=== PATIENT | female | born 1995 | race Hispanic/Latino ===

== ENCOUNTER → 2020-09-09 09:32 | Outpatient (CLI) | payer OTHER, SELFPAY ==
[2020-09-09] MEDS: COVID-19 VACC, Ad26(JANSSEN)/PF 0.5 ML IM (09:41)
== END ==
PROVIDERS: Visit Provider Internal Medicine
DX: Z23 Encounter for immunization (principal)
CPT/HCPCS: 0031A; 91303

== ENCOUNTER 2020-11-21 22:38 | Emergency (ER) | payer OTHER, SELFPAY ==
[2020-11-21 22:50] VITALS: BP 113/74; PULSE 75; RESP 16; TEMP 36.4; O2SAT 98; BMI 28.3
--- NOTE | 2020-11-21 23:00 | ED.HA ---
HPI - Headache General Chief Complaint: Headache Stated Complaint: REALLY BAD HEADACHE NOT GOING AWAY Time Seen by Provider: 11/21/20 22:56 Mode of arrival: Ambulatory Limitations: no limitations History of Present Illness HPI Narrative: 24-year-old female nonsmoker without contributory medical history presents with her significant other and a chief complaint of a frontal headache off and on for the past month. She states that it is squeezing in achy and in the front of her head. It comes on gradually over the course of the day and seems to be worsened by bright lights and loud noises. She denies any fever or chills. She has had no recent trauma or injury. She has no neck pain and denies neurologic symptoms such as blurred vision, trouble speech or numbness, tingling or weakness. She has tried taking some Tylenol and Motrin at home but does not seem to help much. Related Data Home Medications Medication Instructions Recorded Confirmed levonorgestrel 20 mcg/24 hours (6 INTRAUTERINE each 10/08/17 11/04/20 yrs) 52 mg intrauterine device (Mirena) Allergies Allergy/AdvReac Type Severity Reaction Status Date / Time No Known Drug Allergies Allergy Verified 11/04/20 09:22 Review of Systems Review of Systems Narrative: GENERAL: Denies chills, fatigue, malaise, fever, sweats. HEENT: Denies sinus pain, ear pain, sore throat, difficulty swallowing, dizziness. RESPIRATORY: Denies dyspnea, cough, wheezing, hemoptysis, sputum. CARDIOVASCULAR: Denies chest pain, palpitations, orthopnea, edema, GASTROINTESTINAL: Denies nausea, vomiting, abdominal pain, diarrhea, constipation, melena. : Denies dysuria, frequency, incontinence, hematuria, urinary retention. MUSCULOSKELETAL: denies weakness, joint pain, or bony pain SKIN: Denies rash, skin lesions, or other NEUROLOGIC: See HPI. PSYCHIATRIC: No concerning psychosocial issues. 12 point review of systems is negative except for those stated above Patient History Medical History Tuberculosis (~1993) Family History Mother Age: 64 Hypertension High cholesterol Father Diabetes mellitus Grandmother No problems noted. Social History marital status: number of children: 2 household members: spouse and children lives independently: Yes caregiver/support person: No housing: apartment pets and animals: No education level: high school occupational status: employed special kely needs: No travel history: over 6 months ago leisure activities: exercise seatbelt use: always helmet use: Yes water heater temp set < 120 deg: Yes working smoke detector in home: Yes fire extinguisher in home: No carbon monox detector in home: Yes firearms in home: No do you feel safe at home: Yes Smoking Status: Never smoker second hand exposure: No alcohol intake: never substance use type: does not use during the past year weight has: increased > 10 lbs well-balanced diet: rarely or never daily servings fruits/ve-4 caffeine: Yes eating out: 1-3 times/week Type(s) of exercise: walking frequency: 1-2 times per week duration: < 15 minutes/day Smoking Status: Never smoker alcohol intake frequency: 0-2 drinks per day Substance Use Type: does not use Exam Narrative Exam Narrative: GENERAL: [24] year old patient appears stated age. Well-developed patient, in mild distress. Obviously uncomfortable, rubbing her forehead and sitting in a dark room HEAD: Atraumatic. Normocephalic. EYES: Pupils equal round and reactive. Extraocular motions intact. No scleral icterus. No injection or drainage. ENT: Nose without bleeding, purulent drainage. Throat without erythema, tonsillar hypertrophy or exudate. Airway patent. NECK: Trachea midline. Non tender CARDIOVASCULAR: Regular rate and rhythm without murmurs, gallops, or rubs. RESPIRATORY: Clear to auscultation. Breath sounds equal bilaterally. No wheezes, rales, or rhonchi. GASTROINTESTINAL: Abdomen soft, non-tender, nondistended. EXTREMITIES: No edema or joint tenderness. BACK: Nontender without deformity or crepitance. No flank tenderness. NEURO: AOx3. SKIN: No rash or erythema of visible areas Initial Vital Signs Initial Vital Signs: Vital Signs Temperature 97.6 F 11/21/20 22:50 Pulse Rate 75 11/21/20 22:50 Respiratory Rate 16 11/21/20 22:50 Blood Pressure 113/74 11/21/20 22:50 Pulse Oximetry 98 11/21/20 22:50 Course Orders Ordered: Discontinued Medications Amoxicillin/Clavulanate Potassium (Amoxicillin/Clav 875/125 Mg) 1 tab PO NOW ONE Stop: 11/22/20 06:13 Sodium Chloride (Normal Saline 0.9%) 1,000 mls @ 1,000 mls/hr IV BOLUS ONE Stop: 11/22/20 00:00 Last Infusion: 11/22/20 00:09 Dose: 0 mls/hr Documented by: Admin: 11/21/20 23:11 Dose: 1,000 mls/hr Documented by: BERNIE Ketorolac Tromethamine (Ketorolac 30 Mg/Ml Vial) 15 mg IV NOW ONE Stop: 11/21/20 23:21 Last Admin: 11/21/20 23:27 Dose: 15 mg Documented by: CHANTEL Metoclopramide HCl (Metoclopramide 10 Mg/2 Ml Inj) 5 mg IV NOW ONE Stop: 11/21/20 23:21 Last Admin: 11/21/20 23:27 Dose: 5 mg Documented by: CHANTEL Vital Signs Vital signs: Vital Signs - 8 hr 11/21/20 22:50 11/21/20 23:08 11/21/20 23:31 Temperature 97.6 F Pulse Rate 75 60 69 Respiratory Rate 16 Blood Pressure 113/74 103/63 Pulse Oximetry 98 98 99 11/22/20 00:10 Temperature Pulse Rate 79 Respiratory Rate 16 Blood Pressure 98/56 L Pulse Oximetry 99 MDM - Headache Lab Data Labs: Point of Care Testing Test Results Negative Urine Dip Bedside Urine Glucose Negative Bedside Urine Bilirubin - Negative Bedside Urine Ketone - Negative Urine Specific [place] 1.015 Bedside Urine Occult Blood - Negative Bedside Urine pH 8.5 Bedside Urine Protein - Negative Bedside Urine Urobilinogen - Negative Bedside Urine Nitrite - Negative Bedside Urine Leukocytes - Negative Esterase MDM Narrative Medical decision making narrative: Patient had a near complete resolution of symptoms with above-stated therapies Headache considerations include, but not limited to: Subarachnoid hemorrhage, but unlikely as patient denies sudden onset of pain, not worst of life, or neck pain Meningitis considered, but thought unlikely given lack of Brudzinski's, Kernig's sign, altered mental status or fever Giant cell arteritis considered, but thought unlikely given lack of unilateral findings, pain in roman catholic, vision change HTN Emergency considered, but thought unlikely given normal vitals Other serious diagnoses considered unlikely given lack of red flag findings such as sudden onset, increasing frequency, immunocompromise, systemic signs (fever, chills, stiff neck, or rash), focal neurologic findings, trauma, blood thinners, etc. Discharge Plan Departure Patient Disposition: Home Clinical Impression: Headache Qualifiers: Headache type: unspecified Headache chronicity pattern: acute headache Intractability: not intractable Qualified Code(s): R51.9 - Headache, unspecified Instructions: DI for Headache Activity Restrictions/Additional Instructions: *You have been diagnosed with [migraine-type headache] *What to do: *Please continue to take your regular medications as directed. [ ] New medication prescriptions sent to your pharmacy: [ ] [ ] New medication written as a paper prescription [x ] No new medications given *Please follow up with your primary care provider in 2-3 days, call for an appointment. Let them know you were seen in the Emergency Department and that we ask that you be seen in follow up. We will electronically transmit a record of today's note if your PCP is in our system *If you do not have a primary care provider please contact the [facility] Resource line at [phone]. They will ask some questions about your medical history and help get you set up with a doctor in the community. *Return to Emergency Department if you should have any new, worsening or concerning symptoms, such as [fever greater than 101 F, shaking chills, worsening pain, persistent vomiting or other bothersome symptoms] Prescriptions: No Action levonorgestrel [Mirena] 20 mcg/24 hr (5 years) intrauterine device Intrauterine RF: 0 Referrals: Laura Grover MD [Primary Care Provider] -
[2020-11-21 23:08] VITALS: PULSE 60; O2SAT 98
[2020-11-21] MEDS: SODIUM CHLORIDE 0.9% 1,000 ML 1000 ML IV (23:11)
[2020-11-21] MEDS: METOCLOPRAMIDE 10 MG/2 ML INJ 5 MG IV (23:27)
[2020-11-21] MEDS: KETOROLAC 30 MG/ML VIAL 15 MG IV (23:27)
[2020-11-21 23:31] VITALS: BP 103/63; PULSE 69; O2SAT 99
[2020-11-22 00:10] VITALS: BP 98/56; PULSE 79; RESP 16; O2SAT 99
== END 2020-11-22 00:11 | disposition home or self-care (01) ==
PROVIDERS: Emergency Provider Emergency Medicine; PCP Family Medicine
DX: R51.9 Headache, unspecified (principal)
CPT/HCPCS: 36415; 81003; 81025; 96361; 96374; 96375; 99284; J1885; J2765

== ENCOUNTER → 2021-05-15 14:40 | Outpatient (CLI) | payer OTHER, SELFPAY ==
[2021-05-15 15:37] LABS: Add Manual Diff / Slide Review NO; Basophils Absolute Auto 0 /uL (0-100); Basophils Percent Auto 0.5 % (0-2); Eosinophils Absolute Auto 0 /uL (0-450); Eosinophils Percent Auto 0.5 % (2-4); Hematocrit 41.4 % (36-46); Hemoglobin 14.2 g/dL (12.0-16.0); Lymphocytes Absolute Auto 2100 /uL (1100-4500); Lymphocytes Percent Auto 24.7 % (25-40); Mean Corpuscular HGB Conc 34.3 % (30-36); Mean Corpuscular Volume 84.6 fL (80-100); Monocytes Absolute Auto 600 /uL (0-900); Monocytes Percent Auto 6.7 % (3-14); Neutrophils Absolute Auto 5800 /uL (1500-7000); Neutrophils Percent Auto 67.6 % (50-75); Platelet Count 261 X10^3/uL (150-400); Red Blood Cell Count 4.89 X10^6/uL (4.0-5.2); Red Cell Distribution Width 13.5 % (11.6-14.8); White Blood Cell Count 8.6 X10^3/uL (4.5-11.0)
[2021-05-15 16:24] LABS: Appearance Urine UA CLEAR; Bilirubin Urine UA NEGATIVE (NEGATIVE); Color Urine UA YELLOW; Glucose Urine UA NEGATIVE (Negative); Ketones Urine UA NEGATIVE (NEGATIVE); Leukocyte Esterase Urine UA NEGATIVE (NEGATIVE); Nitrite Urine UA NEGATIVE (Negative); Occult Blood Urine UA TRACE-INTACT (Negative); Protein Urine UA NEGATIVE (Negative); Specific Gravity Urine UA 1.015 (1.000-1.035); Urobilinogen Urine UA 0.2 E.U./dL (0.2)
[2021-05-15 17:25] LABS: Hepatitis B Surface Antigen NEGATIVE s/c (NEGATIVE); Rubella Antibody IgG 9.9 IU/mL (>15)
[2021-05-15 17:41] LABS: HIV 1 & 2 Ab/Ag 4th Gen Combo NEGATIVE (NEGATIVE); Hep C Virus Ab w/Reflex Quant NEGATIVE s/c (NEGATIVE)
[2021-05-16 03:50] LABS: RPR Screen Non Reactive (Non Reactive)
[2021-05-16 12:13] LABS: Varicella IgG Antibody 297 index (Immune >165)
== END ==
PROVIDERS: PCP Family Medicine; Referring Provider Family Medicine; Visit Provider Family Medicine
DX: Z34.81 Encounter for supervision of other normal pregnancy, first trimester (principal)
CPT/HCPCS: 36415; 80055; 81003; 86787; 86803; 86850; 86900; 86901; 87086; 87389

== ENCOUNTER → 2021-07-10 13:58 | Outpatient (CLI) | payer OTHER, SELFPAY ==
[2021-07-13 20:26] LABS: AFP, Serum 40.6 ng/mL (.); Estriol, Free 1.41 ng/mL (.); Inhibin A, Dimeric 151.44 pg/mL (.); Inhibin A, MoM 1.06 (.); Maternal Ethnicity Other (.); Maternal Weight 175 lbs (.); Number of Fetuses No (.); OSBR Risk 1 IN 8933 (.); Results Report (.); Test Results *Screen Negative* (.); hCG, MoM 0.67 (.); hCG, Serum 18934 mIU/mL (.)
== END ==
PROVIDERS: PCP Family Medicine; Referring Provider Family Medicine; Visit Provider Family Medicine
DX: Z34.90 Encounter for supervision of normal pregnancy, unspecified, unspecified trimester (principal); Z3A.17 17 weeks gestation of pregnancy
CPT/HCPCS: 36415; 82105; 82677; 84702; 86336

== ENCOUNTER → 2021-08-14 09:58 | Outpatient (CLI) | payer OTHER, SELFPAY ==
--- NOTE | 2021-08-14 10:00 | DI.US.S_ITS ---
PROCEDURE: US OB >= 14 WEEKS FETUS INDICATIONS: ANATOMY OUTSIDE/PRIOR DATING DATA: Last menstrual period (LMP): 03/06/2021. LMP-based estimated date of delivery (ASHLEY): 12/11/2021. First dating scan (date and location): 08/14/2021. Estimated date of delivery (ASHLEY) from first dating scan: 12/14/2021. TECHNIQUE: Real-time scanning was performed of the fetus, with image documentation and biometric measurements. COMPARISON: None from current . FINDINGS: General: A single living intrauterine gestation is present. Presentation: Breech. Placenta: Placental position is anterior , without previa. Amniotic fluid index: 14.2 cm, normal range is 5-24 cm. Single deepest vertical pocket is 4.9 cm. heart rate: 147 beats per minute. Maternal cervical canal: 3.2 cm long. Normal lower limit is 2.5 cm. biometrics: Biparietal diameter: 5.4 cm, 22 weeks 3 days Head circumference: 21.0 cm, 23 weeks 1 day Abdominal circumference: 17.7 cm, 22 weeks 4 days Femur length: 3.8 cm, 22 weeks 1 day Clinically estimated gestational age: 23 weeks 0 days Composite gestational age from present scan: 23 weeks 4 days Estimated weight and percentile: 508 g, 20th percentile Anatomic survey: Neuro: Ventricles are non-dilated at less than 10 mm. Cisterna magna is normal at 3-11 mm. Cerebellum is normal in size and morphology. Nuchal skin fold: Normal at less than 6 mm between 14-21 weeks gestational age. Face: Nose and lips, facial profile are normal. Spine: No evidence for spina bifida. Heart: 4-chambered heart is present, with normal ventricular outflow tracts. There is a single small echogenic focus within each ventricle. Diaphragm: Diaphragm is intact. Stomach: Left-sided stomach is present. Kidneys: No hydronephrosis. Normal is less than 5 mm in 2nd trimester, less than 7 mm in 3rd trimester. Cord: 3-vessel cord has orthotopic insertion. Bladder: Normal in size. Extremities: All 4 extremities identified. IMPRESSION: 1. Single living intrauterine with composite gestational age of 23 weeks 4 days corresponding to an estimated delivery date of 12/14/2021. 2. Small echogenic intracardiac focus demonstrated within each ventricle. The findings are nonspecific and have been described in association with aneuploidy but may also be seen in normal . Increased risk has also been described with bilateral echogenic foci. Recommend correlation clinically with maternal risk factors and consider karyotype testing if clinically indicated. 3. anatomic survey otherwise appears within normal limits. We strive to produce accurate, complete, and clear reports of imaging services. To assist us in improving patient care, this report was composed using standard report templates and voice recognition software. Therefore, it may contain abnormal punctuation, insertions and/or omissions. Occasional wrong-word or sound-alike substitutions may occur. Though we review the report and make efforts to correct it, we do recommend that the report be read carefully in proper context to recognize any text inaccuracies. Dictated by: Sami Mcmullen M.D. on 08/14/2021 at 13:58 Approved by: Sami Mcmullen M.D. on 08/14/2021 at 14:09
== END ==
PROVIDERS: PCP Family Medicine; Referring Provider Family Medicine; Visit Provider Family Medicine
DX: Z3A.23 23 weeks gestation of pregnancy; Z34.92 Encounter for supervision of normal pregnancy, unspecified, second trimester
CPT/HCPCS: 76811

== ENCOUNTER → 2021-09-19 13:23 | Outpatient (CLI) | payer OTHER, SELFPAY ==
--- NOTE | 2021-09-19 13:25 | DI.US.S_ITS ---
PROCEDURE: US OB FOLLOW UP INDICATIONS: FOLLOW UP OUTSIDE/PRIOR DATING DATA: Last menstrual period (LMP): 03/06/2021 LMP-based estimated date of delivery (ASHLEY): 12/11/2021 First dating scan (date and location): 08/14/2021 Estimated date of delivery (ASHLEY) from first dating scan: 12/14/2021 TECHNIQUE: Real-time scanning was performed of the fetus, with image documentation and biometric measurements. Endovaginal scanning: Not indicated COMPARISON: [facility], OB >= 14 WEEKS FETUS, 08/14/2021, 10:09. FINDINGS: General: A single living intrauterine gestation is present. Presentation: Vertex. Placenta: Placental position is anterior, without previa. Amniotic fluid index: 9.9 cm, normal range is 5-24 cm. Single deepest vertical pocket is 4.5 cm. heart rate: 160 beats per minute. Maternal cervical canal: 4.7 cm long. Normal lower limit is 2.5 cm. biometrics: Biparietal diameter: 7 cm, 28 weeks, 1 day Head circumference: 26.3 cm, 28 weeks, 5 days Abdominal circumference: 23.7 cm, 28 weeks, 0 day Femur length: 5.4 cm, 28 weeks, 5 days Clinically estimated gestational age: 27 weeks, 5 days Composite gestational age from present scan: 28 weeks, 3 days Estimated weight and percentile: 1212 g, 63%. Other: Echogenic foci are again seen in both ventricles unchanged from previous study. IMPRESSION: 1. Single live intrauterine gestation with fetus in vertex presentation. heart rate is 160 beats per minute. Normal amount of amniotic fluid. Normal growth. Estimated weight is at 63%. 2. Echogenic foci are again seen in right and left ventricles unchanged from prior study. We strive to produce accurate, complete, and clear reports of imaging services. To assist us in improving patient care, this report was composed using standard report templates and voice recognition software. Therefore, it may contain abnormal punctuation, insertions and/or omissions. Occasional wrong-word or sound-alike substitutions may occur. Though we review the report and make efforts to correct it, we do recommend that the report be read carefully in proper context to recognize any text inaccuracies. Dictated by: Jos Ramirez M.D. on 09/19/2021 at 17:19 Approved by: Jos Ramirez M.D. on 09/19/2021 at 17:21
== END ==
PROVIDERS: PCP Family Medicine; Referring Provider Family Medicine; Visit Provider Family Medicine
DX: Z34.90 Encounter for supervision of normal pregnancy, unspecified, unspecified trimester (principal); Z3A.28 28 weeks gestation of pregnancy
CPT/HCPCS: 76816

== ENCOUNTER → 2021-09-25 12:48 | Outpatient (CLI) | payer OTHER, SELFPAY ==
[2021-09-25 14:28] LABS: Add Manual Diff / Slide Review NO; Basophils Absolute Auto 0 /uL (0-100); Basophils Percent Auto 0.3 % (0-2); Eosinophils Absolute Auto 100 /uL (0-450); Eosinophils Percent Auto 0.9 % (2-4); Hematocrit 39.3 % (36-46); Hemoglobin 13.4 g/dL (12.0-16.0); Lymphocytes Absolute Auto 1800 /uL (1100-4500); Lymphocytes Percent Auto 22.7 % (25-40); Mean Corpuscular HGB Conc 34.1 % (30-36); Mean Corpuscular Volume 87.9 fL (80-100); Monocytes Absolute Auto 300 /uL (0-900); Monocytes Percent Auto 4.2 % (3-14); Neutrophils Absolute Auto 5800 /uL (1500-7000); Neutrophils Percent Auto 71.9 % (50-75); Platelet Count 223 X10^3/uL (150-400); Red Blood Cell Count 4.46 X10^6/uL (4.0-5.2); Red Cell Distribution Width 13.8 % (11.6-14.8)
[2021-09-25 15:20] LABS: GTT (PREG) 1 Hour PP 50gm Dose 130 mg/dL (76-139)
== END ==
PROVIDERS: PCP Family Medicine; Referring Provider Family Medicine; Visit Provider Family Medicine
DX: O28.3 Abnormal ultrasonic finding on antenatal screening of mother (principal); O28.5 Abnormal chromosomal and genetic finding on antenatal screening of mother; Z3A.25 25 weeks gestation of pregnancy
CPT/HCPCS: 36415; 82950; 85025

== ENCOUNTER → 2021-11-27 12:02 | Outpatient (CLI) | payer OTHER, SELFPAY ==
[2021-11-28 21:32] LABS: Strep Grp B PCR NEG for Grp B Strep
== END ==
PROVIDERS: PCP Family Medicine; Visit Provider Family Medicine
DX: Z34.90 Encounter for supervision of normal pregnancy, unspecified, unspecified trimester (principal); Z3A.36 36 weeks gestation of pregnancy
CPT/HCPCS: 87653

== ENCOUNTER → 2021-12-07 12:51 | Outpatient (CLI) | payer OTHER, SELFPAY ==
--- NOTE | 2021-12-07 12:52 | DI.US.S_ITS ---
PROCEDURE: US OB LIMITED INDICATIONS: SGA OUTSIDE/PRIOR DATING DATA: Last menstrual period (LMP): 03/06/2021. LMP-based estimated date of delivery (ASHLEY): 12/11/2021. First dating scan (date and location): 08/14/2021. Estimated date of delivery (ASHLEY) from first dating scan: 12/14/2021. The calculations are made using the ultrasound ASHLEY of 12/14/2021. TECHNIQUE: Real-time scanning was performed of the fetus, with image documentation and biometric measurements. Endovaginal scanning: Not performed COMPARISON: [facility], OB >= 14 WEEKS FETUS, 08/14/2021, 10:09. FINDINGS: General: A single living intrauterine gestation is present. Presentation: Vertex. Placenta: Placental position is anterior , without previa. Amniotic fluid index: 7.1 cm, normal range is 5-24 cm. Single deepest vertical pocket is 2.5 cm. heart rate: 155 beats per minute. Maternal cervical canal: Not seen at late stage of biometrics: Biparietal diameter: 8.9 cm, 35 weeks 6 days Head circumference: 32.3 cm, 36 weeks 3 days Abdominal circumference: 34.0 cm, 37 weeks 6 days Femur length: 7.3 cm, 37 weeks 1 day Clinically estimated gestational age: 39 weeks 0 days Composite gestational age from present scan: 36 weeks 6 days Estimated weight and percentile: 3168 g, 27th percentile Other: Not applicable. IMPRESSION: Living late 3rd trimester intrauterine . Ultrasound age is 15 days less than clinical age based on initial 1st trimester ultrasound. We strive to produce accurate, complete, and clear reports of imaging services. To assist us in improving patient care, this report was composed using standard report templates and voice recognition software. Therefore, it may contain abnormal punctuation, insertions and/or omissions. Occasional wrong-word or sound-alike substitutions may occur. Though we review the report and make efforts to correct it, we do recommend that the report be read carefully in proper context to recognize any text inaccuracies. Dictated by: Cristofer Bradley M.D. on 12/07/2021 at 16:28 Approved by: Cristofer Bradley M.D. on 12/07/2021 at 16:32
== END ==
PROVIDERS: PCP Family Medicine; Referring Provider Family Medicine; Visit Provider Family Medicine
DX: Z36.4 Encounter for antenatal screening for fetal growth retardation (principal); Z3A.36 36 weeks gestation of pregnancy
CPT/HCPCS: 76815

== ENCOUNTER 2021-12-11 03:05 | Observation (INO) | payer OTHER, SELFPAY ==
--- NOTE | 2021-12-11 04:34 | PM.OBTRLD ---
Visit Information Visit Information Date of evaluation: 12/11/21 Primary OB Provider: Laura Grover On-call OB Provider: Hortencia Chester Reason for Evaluation: Yes rule out labor Vital Signs Vital Signs: Blood pressure 121/65, pulse 93, temperature 98.4? [facility] Medical History Tuberculosis (~1993) Family History (Updated 05/11/21 @ 10:46 by Mariaelena Isidro RN) Mother Age: 65 High cholesterol Father Diabetes mellitus Grandmother No problems noted. Grandfather Family history unknown Grandmother No problems noted. Grandfather Diabetes mellitus Social History marital status: number of children: 2 household members: spouse and children lives independently: Yes caregiver/support person: No housing: apartment pets and animals: No education level: high school occupational status: employed current occupational exposures/hazards: No kely/ad[employer]: [employer] special kely needs: No travel history: over 6 months ago leisure activities: exercise seatbelt use: always helmet use: Yes water heater temp set < 120 deg: Yes working smoke detector in home: Yes fire extinguisher in home: No carbon monox detector in home: Yes firearms in home: No do you feel safe at home: Yes Smoking Status: Never smoker second hand exposure: No alcohol intake: never substance use type: does not use during the past year weight has: increased > 10 lbs well-balanced diet: about half the time daily servings fruits/ve-4 caffeine: Yes (1 cup daily) eating out: 1-3 times/week Type(s) of exercise: walking frequency: 1-2 times per week duration: < 15 minutes/day Evaluation Evaluation Baseline heart rate: 130 Variability: Moderate (11-25) monitor accelerations: Present Monitor Decelerations: Absent Contraction Frequency (minutes): 8 Uterine Contraction Intensity: Moderate Category of Tracing: Reactive Status: Category l Cervical dilation (cm): 3 Cervical effacement (%): 80 station: 0 Diagnosis, Plan/Disposition Final Diagnosis (1) False labor: Status: Acute (2) 39 weeks gestation of : Status: Acute Plan/Disposition Plan: Patient to ambulate for 1 hour and return for cervical exam
== END 2021-12-11 05:45 | disposition home or self-care (01) ==
LOC: LABOR 03:08
PROVIDERS: Admitting Provider Specialist; PCP Family Medicine; Referring Provider Specialist; Visit Provider Specialist
DX: O47.1 False labor at or after 37 completed weeks of gestation (principal); Z3A.39 39 weeks gestation of pregnancy
CPT/HCPCS: 59025; G0378; G0379

== ENCOUNTER 2021-12-11 07:56 | Inpatient (IN) | payer OTHER, SELFPAY ==
[2021-12-11] MEDS: fentaNYL 100 MCG/2 ML INJ (08:57)
[2021-12-11] MEDS: OXYTOCIN PREMIX 30 UNIT/500 ML PLAST..BAG 300 UNIT IV (09:02)
[2021-12-11] MEDS: LACTATED RINGERS 1,000 ML 125 ML IV (09:10)
--- NOTE | 2021-12-11 09:15 | PM.OBPRVD ---
Labor & Delivery Delivery date: 12/11/21 Intrapartal Events: Precipitous Labor < 3 hours Cervical ripening method: none Induction method: none Delivery augmentation: rupture of membranes Delivery monitor: external FHT Route of delivery: Episiotomy description: None L&D Laceration Description: None Quantitative Blood Loss: 1,600 Anesthesia Type: None Complications: hemorrhage Retained placenta Narrative: PROCEDURE: at 39w3d presented in active labor and was admitted to Labor and Delivery. The patient progressed through the 1st stage over 2.5 hours. Pain was controlled with natural methods. When the pt was complete and pushing, AROM was performed with meconium-stained amniotic fluid present. The patient progressed through the 2nd stage over 20 minutes and delivered a viable female with APGARs 9/9 at 8:32am via without complications. The cord was cut and clamped after it stopped pulsing. Active management of the third stage of labor was completed. With gentle cord traction and counter pressure on the uterus, after 25 minutes the umbilical cord avulsed. The pt was given Fentanyl, and then the placenta was manually extracted successfully. The entire placenta was noted to be present, and the uterus was swept after removal. The perineum and vagina were inspected with no lacerations. hemorrhage was noted after completion of the delivery, likely due to prolonged 3rd stage. PREPROCEDURE DIAGNOSIS: Intrauterine at 39w3d GBS negative RH positive Meconium-stained amniotic fluid POSTPROCEDURE DIAGNOSIS: Intrauterine at 39w3d, delivered Same as preprocedure Retained placenta hemorrhage [place] Baby 1: Infant gender: Female Presentation: vertex Position: Right Occiput Anterior Placenta delivery description: Manual Removal Cord Vessel Description: 3 Vessels score (1 min): 9 score (5 min): 9 weight: 6 lb 4.954 oz Plan for aftercare: Routine care
--- NOTE | 2021-12-11 09:23 | P.HPOB_ITS ---
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 Pt reports having contractions all night. She was seen in L&D earlier this morning, and discharged home in latent labor. Her contractions intensified since then. She denies any LOF or vaginal bleeding. She is feeling her baby move regularly. care: good care, initiated at week # (9) and pounds weight gain (9) Dating criteria OB: LMP confirmed by 1st trimester US Ultrasounds: normal 1st trimester US and abnormal US findings Abnormal ultrasound findings: EIF on anatomy scan Obstetrical complications: none Medical complications OB: none Preadmission Labs Last OB Lab Results: Blood Type O Positive 12/11/21 08:15 Antibody Screen Negative 12/11/21 08:15 Hematocrit 28.4 % (36-46) L 12/11/21 12:20 Hemoglobin 9.7 g/dL (12.0-16.0) L 12/11/21 12:20 Hepatitis B Surface Antigen Negative s/c (NEGATIVE) 05/15/21 14 :43 Hepatitis C Antibody Negative s/c (NEGATIVE) 05/15/21 14:43 Rubella Antibody 9.9 IU/mL (>15) L 05/15/21 14:43 Varicella-Zoster IgG Antibody 297 index (Immune >165) 05/15/21 14:43 Glucose 1 Hour 130 mg/dL (76-139) 09/25/21 13:05 Group B Streptococcus (PCR) Neg for grp b strep 11/27/21 12:02 -: Urine: negative Genetic Screens: Quad screen: Normal and Cell-free DNA: Normal External Labs -: Urine: negative Prior (ies) Past Pregnancies Del. Date GA/Weeks Labor Lgth Wt Sex Route Outcome Anesthesia Place Delv Breastfeed Preg Comp Name 04/22/11 9 spontaneous spontaneous 05/01/13 41.4 11 7 lb 3.3 oz Male vaginal live - full t erm epidural IH w/ Garde 14 mos. post-dates induction Reid 08/16/14 41 7 7 lb 6.9 oz Female vaginal live - full t erm epidural IH w Babatunde 2 yrs none Belia Delivery Date: 04/22/11 Last Updated by: Mariaelena Isidro R.N. Missed AB with D&C. No complications. Evaluation Evaluation Baseline heart rate: 140 Variability: Moderate (11-25) monitor accelerations: Present Monitor Decelerations: Absent Contraction Frequency (minutes): 2 Status: Category l Dilation (cm): 10 Effacement (%): 100 station: +4 Comments: AROM with meconium-stained fluid present [facility] Medical History Tuberculosis (~1993) Family History (Updated 05/11/21 @ 10:46 by Mariaelena Isidro RN) Mother Age: 65 High cholesterol Father Diabetes mellitus Grandmother No problems noted. Grandfather Family history unknown Grandmother No problems noted. Grandfather Diabetes mellitus Social History marital status: number of children: 2 household members: spouse and children lives independently: Yes caregiver/support person: No housing: apartment pets and animals: No education level: high school occupational status: employed current occupational exposures/hazards: No kely/rastafari: Yazidism special kely needs: No travel history: over 6 months ago leisure activities: exercise seatbelt use: always helmet use: Yes water heater temp set < 120 deg: Yes working smoke detector in home: Yes fire extinguisher in home: No carbon monox detector in home: Yes firearms in home: No do you feel safe at home: Yes Smoking Status: Never smoker second hand exposure: No alcohol intake: never substance use type: does not use during the past year weight has: increased > 10 lbs well-balanced diet: about half the time daily servings fruits/ve-4 caffeine: Yes (1 cup daily) eating out: 1-3 times/week Type(s) of exercise: walking frequency: 1-2 times per week duration: < 15 minutes/day Meds Home Medications and Allergies Home Medications Medication Instructions Recorded Confirmed Type prenat.vits,darrell,[id number]-cbaf-sujjh 1 tab PO DAILY 05/11/21 12/11/21 History Allergies Allergy/AdvReac Type Severity Reaction Status Date / Time No Known Drug Allergies Allergy Verified 11/27/21 11:59 OB Exam Narrative Exam Narrative: Gen: NAD, sitting comfortably in bed, appears well CV: RRR, no murmurs Resp: clear to auscultation bilaterally Abd: soft, nontender, gravid Ext: no edema Objective Labs Result Diagrams: 12/11/21 12:20 Assessment and Plan Assessment and Plan Assessment and Plan narrative: 25yo at 39w3d who presented in active labor. EIF on anatomy scan with negative Quad and cfDNA testing. No other complications with . GBS negative, Rh positive. - Expectant management, anticipate - FHT reassuring - GBS negative, no prophlaxis needed - Natural methods for pain control
[2021-12-11 09:31] LABS: Add Manual Diff / Slide Review NO; Basophils Absolute Auto 100 /uL (0-100); Basophils Percent Auto 0.4 % (0-2); Eosinophils Absolute Auto 0 /uL (0-450); Eosinophils Percent Auto 0.1 % (2-4); Hematocrit 38.4 % (36-46); Hemoglobin 13.2 g/dL (12.0-16.0); Lymphocytes Absolute Auto 2400 /uL (1100-4500); Lymphocytes Percent Auto 18.1 % (25-40); Mean Corpuscular HGB Conc 34.5 % (30-36); Mean Corpuscular Hemoglobin 28.5 PG (26-34); Mean Corpuscular Volume 82.7 fL (80-100); Monocytes Absolute Auto 500 /uL (0-900); Monocytes Percent Auto 3.7 % (3-14); Neutrophils Absolute Auto 10200 /uL (1500-7000); Neutrophils Percent Auto 77.7 % (50-75); Platelet Count 235 X10^3/uL (150-400); Red Blood Cell Count 4.64 X10^6/uL (4.0-5.2); Red Cell Distribution Width 14.3 % (11.6-14.8); White Blood Cell Count 13.1 X10^3/uL (4.5-11.0)
[2021-12-11 10:07] VITALS: BP 136/88
[2021-12-11 10:55] LABS: COVID19 -Nasal RAPID Negative (Negative)
[2021-12-11] MEDS: IBUPROFEN 600 MG TABLET PO ×2 (11:12→16:47)
[2021-12-11] MEDS: ACETAMINOPHEN 325 MG TABLET 650 MG PO ×2 (11:12→16:46)
[2021-12-11 12:29] LABS: Add Manual Diff / Slide Review NO; Basophils Absolute Auto 0 /uL (0-100); Basophils Percent Auto 0.3 % (0-2); Eosinophils Absolute Auto 0 /uL (0-450); Hematocrit 28.4 % (36-46); Hemoglobin 9.7 g/dL (12.0-16.0); Lymphocytes Absolute Auto 1600 /uL (1100-4500); Mean Corpuscular HGB Conc 34.2 % (30-36); Mean Corpuscular Hemoglobin 28.4 PG (26-34); Mean Corpuscular Volume 82.8 fL (80-100); Monocytes Absolute Auto 700 /uL (0-900); Monocytes Percent Auto 3.9 % (3-14); Neutrophils Absolute Auto 15000 /uL (1500-7000); Neutrophils Percent Auto 86.8 % (50-75); Platelet Count 202 X10^3/uL (150-400); Red Blood Cell Count 3.43 X10^6/uL (4.0-5.2); Red Cell Distribution Width 14.1 % (11.6-14.8); White Blood Cell Count 17.3 X10^3/uL (4.5-11.0)
--- NOTE | 2021-12-11 16:24 | PM.OBPN.1 ---
Subjective - OB Subjective Patient comments: other Narrative: I was passing patient's room when she was being moved from delivery room to her room. On transferring to the transport chair, she was slumped over, passing out. Two nurses were already present and near by nurses and myself to help get the patient back into bed. Her head was lowered and her feet was elevated. With lying her back down, she became fully conscious. Aware of hemorrhage this morning. Patient with only light amount on her pad now and with nurse pressing on her uterus, no further bleeding. Date Patient Seen: 12/11/21 Time Patient Seen: 11:45 Exam Vital Signs (past 8 hours): - 12/11/21 10:07 Blood Pressure 136/88 Narrative Exam Narrative: General: Pale-appearing, was slumping over passing out in standing position on chair. Color returning to her face with lying down and patient now awake, becoming more alert. Objective Labs Result Diagrams: 12/11/21 12:20 Labs: Laboratory Results - last 24 hr 12/11/21 12/11/21 12/11/21 08:15 08:15 08:20 WBC 13.1 H RBC 4.64 Hgb 13.2 Hct 38.4 MCV 82.7 MCH 28.5 MCHC 34.5 RDW 14.3 Plt Count 235 Neut % (Auto) 77.7 H Lymph % (Auto) 18.1 L [place] % (Auto) 3.7 Eos % (Auto) 0.1 L Baso % (Auto) 0.4 Neut # (Auto) 24372 H Lymph # (Auto) 2400 [place] # (Auto) 500 Eos # (Auto) 0 Baso # (Auto) 100 SARS-CoV-2 (PCR) Negative Blood Type O Positive Antibody Screen Negative 12/11/21 12:20 WBC 17.3 H RBC 3.43 L Hgb 9.7 L Hct 28.4 L MCV 82.8 MCH 28.4 MCHC 34.2 RDW 14.1 Plt Count 202 Neut % (Auto) 86.8 H Lymph % (Auto) 9.0 L [place] % (Auto) 3.9 Eos % (Auto) 0.0 L Baso % (Auto) 0.3 Neut # (Auto) 22294 H Lymph # (Auto) 1600 [place] # (Auto) 700 Eos # (Auto) 0 Baso # (Auto) 0 SARS-CoV-2 (PCR) Blood Type Antibody Screen Assessment & Plan Plan plan OB: other Comments: She had received 1 L IV fluid bolus previously. Advise 500 mL IV fluids now, and continue rest in bed. Ordered her CBC since to right now to see where her H/H stands. If H/H not severely low, then consider transport later by bed and slowly go to sitting position later and see how she tolerates it. Patient did improve with rest and the the fluids. H/H returned as 9.7/. Her primary provider was notified. Time Spent With Patient Time: Total time spent is greater than 50% in coordination of care (as documented) at patient's floor/unit and/or counseling patient: Time with patient: less than 15 minutes
[2021-12-12] MEDS: ACETAMINOPHEN 325 MG TABLET 650 MG PO ×2 (02:26→08:45)
[2021-12-12 07:16] LABS: Add Manual Diff / Slide Review NO; Basophils Absolute Auto 0 /uL (0-100); Basophils Percent Auto 0.5 % (0-2); Eosinophils Absolute Auto 0 /uL (0-450); Eosinophils Percent Auto 0.1 % (2-4); Hematocrit 24.2 % (36-46); Hemoglobin 8.4 g/dL (12.0-16.0); Lymphocytes Absolute Auto 1300 /uL (1100-4500); Lymphocytes Percent Auto 16.5 % (25-40); Mean Corpuscular HGB Conc 34.9 % (30-36); Mean Corpuscular Hemoglobin 28.9 PG (26-34); Monocytes Absolute Auto 500 /uL (0-900); Monocytes Percent Auto 6.6 % (3-14); Neutrophils Absolute Auto 6200 /uL (1500-7000); Neutrophils Percent Auto 76.3 % (50-75); Platelet Count 179 X10^3/uL (150-400); Red Blood Cell Count 2.92 X10^6/uL (4.0-5.2); Red Cell Distribution Width 14.4 % (11.6-14.8); White Blood Cell Count 8.2 X10^3/uL (4.5-11.0)
[2021-12-12] MEDS: DOCUSATE 100 MG CAPSULE PO (08:43)
--- NOTE | 2021-12-12 08:44 | P.DS_ITS ---
Discharge Providers Provider Date of admission: 12/11/21 07:56 Discharge Date: 12/12/21 Primary care physician: Laura Grover MD Consults: 12/12/21 09:14 Consult to Radiology Technician Routine Comment: Discharge provider: Laura Grover MD Summary Hospital Course Date Patient Seen: 12/12/21 Time Patient Seen: 08:20 Diagnoses: Intrauterine at 39w3d GBS negative RH positive Meconium-stained amniotic fluid Retained placenta hemorrhage Hospital Course: The pt presented in active labor. AROM was performed when delivery was imminent with production of meconium-stained amniotic fluid. The pt had a precipitous delivery of a viable baby girl on 12/11/21, using natural methods for pain control. The pts umbilical cord avulsed during active management of the third stage, and the placenta was manually extracted. The pt did have a hemorrhage due to prolonged third stage. There were no lacerations. , the pt did have a near syncopal episode. The pt had a significant drop in her H/H, but not to transfusion level. She responded well to IVF bolus. Since then, she has remained asymptomatic. She will continue on an iron supplement at discharge. There were no other complications. At the time of discharge she was voiding, ambulating, and passing flatus without difficulty. Her lochia was decreasing appropriately. She was with good latch. Her pain was well controlled. She will f/u in clinic in 6 weeks for check. She is undecided regarding contraception, but has had a Mirena IUD in the past. Time Spent with Patient Time attestation: Total time spent providing and/or coordinating discharge services: Objective Labs Result Diagrams: 12/12/21 07:05 Labs: Laboratory Results - last 24 hr 12/11/21 12/11/21 12/11/21 08:15 08:15 08:20 WBC 13.1 H RBC 4.64 Hgb 13.2 Hct 38.4 MCV 82.7 MCH 28.5 MCHC 34.5 RDW 14.3 Plt Count 235 Neut % (Auto) 77.7 H Lymph % (Auto) 18.1 L [place] % (Auto) 3.7 Eos % (Auto) 0.1 L Baso % (Auto) 0.4 Neut # (Auto) 39924 H Lymph # (Auto) 2400 [place] # (Auto) 500 Eos # (Auto) 0 Baso # (Auto) 100 SARS-CoV-2 (PCR) Negative Blood Type O Positive Antibody Screen Negative 12/11/21 12/12/21 12:20 07:05 WBC 17.3 H 8.2 D RBC 3.43 L 2.92 L Hgb 9.7 L 8.4 L Hct 28.4 L 24.2 L MCV 82.8 83.0 MCH 28.4 28.9 MCHC 34.2 34.9 RDW 14.1 14.4 Plt Count 202 179 Neut % (Auto) 86.8 H 76.3 H Lymph % (Auto) 9.0 L 16.5 L [place] % (Auto) 3.9 6.6 Eos % (Auto) 0.0 L 0.1 L Baso % (Auto) 0.3 0.5 Neut # (Auto) 33031 H 6200 Lymph # (Auto) 1600 1300 [place] # (Auto) 700 500 Eos # (Auto) 0 0 Baso # (Auto) 0 0 SARS-CoV-2 (PCR) Blood Type Antibody Screen Exam Narrative Exam Narrative: Gen: NAD, sitting comfortably in bed, appears well CV: RRR, no murmurs Resp: clear to auscultation bilaterally Abd: soft, appropriately tender, fundus firm and below the umbilicus, no ndistended Ext: no edema Discharge Plan Discharge Plan Patient Disposition: Home Discharge orders & Medications Prescriptions: New acetaminophen 325 mg Tablet 650 mg PO Q6HR PRN (Reason: Pain, Mild (1-3)) Qty: 30 0RF docusate sodium 100 mg Capsule 100 mg PO DAILY Qty: 30 0RF ferrous sulfate 325 mg (65 mg iron) Tablet 325 mg PO DAILY Qty: 30 0RF ibuprofen 600 mg Tablet 600 mg PO Q6HR PRN (Reason: Pain, Mild (1-3)) Qty: 30 0RF Continued prenat.vits,darrell,[id number] Tablet 1 tab PO DAILY Follow up/Referrals: Laura Grover MD [Primary Care Provider] - 6 Weeks (please follow up w/ Dr. Grover on January 17 @ 2:45pm) Diet/Activity/Treatments Diet: Diet as Tolerated and Regular Skin/Wound/Dressing Care Report to your healthcare provider any signs of infection, such as:: chills, fever, increased pain and unusual drainage Visit Report/Discharge Packet Instructions: DI for Labor and Delivery, Vaginal Stand Alone Forms: Discharge: Care Visit Report Forms: Patient Portal/API, Stroke Signs & Symptoms Discharge Data Primary Care Provider: Laura Grover
[2021-12-12 08:45] VITALS: TEMP 37.1
[2021-12-12] MEDS: PRENATAL VIT,CALC/IRON/FOLIC 1 TABLET 1 TAB PO (08:45)
[2021-12-12] MEDS: FERROUS SULFATE 325 MG TABLET PO (08:45)
[2021-12-12 10:57] VITALS: BP 107/65; PULSE 94; RESP 17; TEMP 37.1
[2021-12-12] MEDS: MEASLES,MUMPS,RUBELLA VACC/PF 0.5 ML VIAL SUBCUT (11:38)
[2021-12-12] MEDS: IBUPROFEN 600 MG TABLET PO (11:52)
== END 2021-12-12 12:25 | disposition home or self-care (01) | DRG 806 ==
PROVIDERS: Admitting Provider Family Medicine; PCP Family Medicine; Referring Provider Family Medicine; Visit Provider Family Medicine
DX: O62.3 Precipitate labor (principal); O72.0 Third-stage hemorrhage; Z37.0 Single live birth; D62 Acute posthemorrhagic anemia; Z3A.39 39 weeks gestation of pregnancy; O77.0 Labor and delivery complicated by meconium in amniotic fluid; Z20.822 Contact with and (suspected) exposure to COVID-19; O47.9 False labor, unspecified; O99.02 Anemia complicating childbirth
CPT/HCPCS: 36415; 59025; 59050; 59400; 85025; 86850; 86900; 86901; 87635; C9803; G0378; G0379; J2590; J3010

== ENCOUNTER → 2023-05-21 11:12 | Outpatient (CLI) | payer OTHER, SELFPAY ==
--- NOTE | 2023-05-21 11:12 | DI.US.S_ITS ---
LIMITED ULTRASOUND OF LEFT BREAST: 05/21/2023 CLINICAL: Focal left breast pain for approximately 1.5 months. Patient currenting breast feeding. No prior exams were available for comparison. Color flow and real-time ultrasound of the left breast retroareolar were performed. Mederos scale images of the real-time examination were reviewed. No sonographic abnormality is seen in the area of clinical concern in the left retroareolar region. IMPRESSION: NEGATIVE No sonographic abnormality in the area of clinical concern. No targeted sonographic evidence of malignancy. Recommend routine screening mammogram starting at age 40. Clinical follow-up is also recommended, and further management of palpable abnormalities or other focal signs or symptoms should be based on the results of clinical evaluation. If palpable abnormality or other concerning symptom persists or progresses, further clinical evaluation should be considered. Findings and recommendations were conveyed to the patient during today's evaluation. This exam was interpreted at Station ID: [id number]. Electronically Signed By: Dina Reilly M.D., PH.D eb/:05/21/2023 13:34:54 letter sent: Clinical Evaluation Ultrasound BI-RADS: 1 Negative
== END ==
LOC: US 11:12
PROVIDERS: PCP Family Medicine; Referring Provider Family Medicine; Visit Provider Family Medicine
DX: N64.4 Mastodynia (principal); Z39.1 Encounter for care and examination of lactating mother
CPT/HCPCS: 76642